=== PATIENT | female | born 1950 | race Caucasian/White ===

== ENCOUNTER → 2017-03-18 | Outpatient (CLI) | payer MEDICARE, OTHER ==
[~2017-03-18] MED LIST: ASPIR 8181 M1 PO; DAILY VALUE1 EACH PO; ESTRACE1 MG PO; FISH OIL 1,0001 EAC7 PO; FLAXSEED OIL1000 M4 PO; NEXIUM40 MG PO; TYLENOL REGULA325 MG PO
== END | disposition home or self-care (01) ==
LOC: CDC 10:59
DX: Z01.810 Encounter for preprocedural cardiovascular examination (principal); M54.16 Radiculopathy, lumbar region; I49.49 Other premature depolarization
CPT/HCPCS: 93000

== ENCOUNTER 2017-04-02 22:26 | Inpatient (IN) | payer OTHER ==
[~2017-04-02] VITALS: Ht 157.5 cm; Wt 60.1 kg
[~2017-04-02 22:26] MED LIST changes: +CALCIUM 500 MG1 EACH PO; +ESTRACE0.5 MG PO; -ESTRACE1 MG PO; +HEARTBURN RELI150 M1 PO
[2017-04-03] MEDS ORDERED: TYLENOL REGULA325 MG PO (07:36)
[2017-04-03 07:40] VITALS: BP 140/65
[2017-04-03 16:47] VITALS: BP 103/57
[2017-04-03 17:35] VITALS: BP 103/57
== END 2017-04-03 19:47 | disposition home or self-care (01) | DRG 455 ==
LOC: ENRESERV 22:26 → 2SOUTH 04-03 06:16 → ENRESERV 04-03 13:34 → 2SOUTH 04-03 14:01 → ENRESERV 04-03 14:57 → 2SOUTH 04-03 15:48 → 3EAST 04-03 15:56
DX: M51.16 Intervertebral disc disorders with radiculopathy, lumbar region (principal); M43.16 Spondylolisthesis, lumbar region; K21.9 Gastro-esophageal reflux disease without esophagitis; M85.88 Other specified disorders of bone density and structure, other site; M81.0 Age-related osteoporosis without current pathological fracture; Z79.82 Long term (current) use of aspirin; Z88.0 Allergy status to penicillin; Z87.891 Personal history of nicotine dependence
CPT/HCPCS: 72100; 76000; 86850; 86900; 86901; C1713; J0131; J1100; J1170; J2250; J2270; J2310; J2405; J3010; J3370; J3480; S0020